=== PATIENT | female | born 1955 | race Caucasian/White ===

== ENCOUNTER → 2020-05-19 | Outpatient (CLI) | payer BC ==
--- NOTE | 2020-05-20 16:17 | RAD ---
DEXA scan 05/19/2020 Clinical History: Postmenopausal female. Risk factors for osteoporosis. Technique: DEXA of the lumbar spine and right hip was performed. FINDINGS: No previous studies are available for comparison. The bone mineral density of the lumbar spine is 1.033 g/cm2 which corresponds with a T-score of -1.2 . This is consistent with mild osteopenia. The mean bone mineral density of the right hip is g/sq cm. This corresponds to a T score of -3.3. This is consistent with mild to moderate osteoporosis. By [employer] on Osteoporosis criteria, a T score of 0 to-1 SD is considered to be within normal limits. A T score of -1 to -2.5 SD is considered osteopenia. A T score less than -2.5 SD is considered osteoporosis Impression: 1. Mild osteopenia of the lumbar spine. 2. Mild to moderate osteoporosis of the right hip. Electronically signed by: Brain Nguyen MD (05/20/2020 4:15 PM) [id number]
== END ==
LOC: DXRAD 15:17
PROVIDERS: ATTEND Family Medicine
DX: M81.8 Other osteoporosis without current pathological fracture (principal); M85.88 Other specified disorders of bone density and structure, other site; M25.551 Pain in right hip; M54.5 Low back pain; M54.16 Radiculopathy, lumbar region
CPT/HCPCS: 77080

== ENCOUNTER → 2021-09-14 | Outpatient (CLI) | payer MEDICARE ==
[~2021-09-14] MED LIST: IOHEXOL 240 MG/ML 50ML VIAL. ONE; IOHEXOL 300 MG/ML 75 ML VIAL. IV ONE
--- NOTE | 2021-09-14 11:33 | RAD ---
EXAM: Abdomen and pelvis CT with intravenous contrast. HISTORY: IVC obstruction. TECHNIQUE: Computed tomographic images of the abdomen and pelvis were obtained following the administ ration of intravenous contrast. Multiplanar reformatting was performed. *One or more of the following individualized dose reduction techniques were utilized for this examina tion: 1. Automated exposure control. 2. Adjustment of the mA and/or kV according to patient size. 3. Use of iterative reconstruction technique. COMPARISON: None. FINDINGS: Evaluation of the lower thorax demonstrates posterior dependent atelectasis. There is no in filtrate or pleural effusion. There is biliary ductal dilatation likely due to reservoir effect statu s post cholecystectomy. The pancreas, spleen and adrenal glands are unremarkable. There is a small hi atal hernia. There is renal cortical lobulation, developmental or due to scarring. There is a tiny crane perior right renal cortical cyst. There is no hydronephrosis. There is no appendicitis. There is no bowel obstruction. There is colonic diverticulosis. There is no diverticulitis. The bladder is unremarkable. The uterus is absent. The adnexal regions are unremarka ble. The aorta is atherosclerotic. There are prominent retroperitoneal and iliac chain lymph nodes. F or reference purposes, there is a left retroperitoneal lymph node slightly proximal to the iliac bifu rcation measuring 1.9 cm in long axis. The IVC is patent. There is severe right hip osteoarthritis. There is lumbar scoliosis. The mid is gr hugo 1 anterolisthesis of L4 on L5. There is degenerative change contributing to severe foraminal sten osis at L4-L5 and L5-S1. There is linear scarring with associated dystrophic calcification along the inferior ventral abdominal wall, possibly due to prior section. IMPRESSION: 1. No evidence of IVC obstruction. There are prominent nonspecific retroperitoneal and iliac chain ly mph nodes which may be physiologic or reactive. In the absence of prior studies to confirm stability, follow-up in approximately 6 months can be performed to confirm benignity. 2. Colonic diverticulosis. 3. Small hiatal hernia. 4. Biliary ductal dilatation due to reservoir effect status post cholecystectomy. 5. Tiny right renal cortical cyst. Follow-up is not routinely performed for simple cysts. 6. Severe right hip osteoarthritis and advanced degenerative change involving the lower lumbar spine. Electronically signed by: Estela Vail MD (09/14/2021 11:30 AM) [id number]
--- NOTE | 2021-09-15 07:58 | RAD ---
MR#: [id number] Date of Study: 09/14/2021 Ordering Physician: ZAY BRAUN, Referring Physician: ZAY BRAUN, Tech: Rhoda Lai, [place], [facility] APPROVED REPORT Bilateral Lower Extremity Venous Study for DVT Patient Location: OUT-PATIENT Indications Lower Extremity Edema: Medications Plavix Vein Imaging (Right) CFV (R): Compressible SFJ (R): Compressible FEM (R): Compressible POP (R): Compressible DFV (R): Compressible PTV (R): Compressible Vein Imaging (Left) CFV (L): Compressible SFJ (L): Compressible FEM (L): Compressible POP (L): Compressible DFV (L): Compressible PTV (L): Compressible Critical Notification Critical Value: No <Conclusion> FINDINGS Grayscale images of deep veins bilateral lower extremities were grossly unremarkable with fully compr essible common femoral, femoral and popliteal veins. Spectral waveform and color duplex analysis was within normal limits. The calf veins were poorly visualized secondary to soft tissue edema. No obv ious deep venous thrombosis was noted. CONCLUSIONS Bilateral lower extremity venous duplex scan did not show any obvious deep venous thrombosis. Signed by : Theodore Hammond, Electronically Approved : 09/15/2021 07:58:01
--- NOTE | 2021-09-15 08:01 | RAD ---
MR#: [id number] Date of Study: 09/14/2021 Ordering Physician: ZAY BRAUN, Referring Physician: ZAY BRAUN, Tech: Rhoda Lai RVT, [facility] APPROVED REPORT Patient Location : OUT-PATIENT Indications Lower Extremity Edema : Acute Bilateral Venous Stasis Dermatitis Medications Plavix Greater Saphenous Veins (GSV) Significant venous relux noted in the RIGHT GSV at the following levels : Proximal Thigh, Mid Thigh, Proximal Calf, Mid Calf Significant venous relux noted in the LEFT GSV at the following levels : Superficial Femoral Junction , Mid Thigh, Distal Thigh, Mid Calf, Distal Calf Lesser Saphenous Veins (LSV) Leftt Thigh extension noted : Yes Critical Notification Critical Value: No <Conclusion> FINDINGS Grayscale images of superficial veins and saphenofemoral junctions bilateral lower extremities were g rossly unremarkable without any evidence of thrombus. Spectral waveform and color duplex analysis sh owed significant venous reflux involving bilateral greater saphenous veins. The lesser saphenous vei ns bilaterally did not show any significant venous insufficiency. The right greater saphenous vein measured 6 mm at the saphenofemoral junction and showed significant reflux of 1.5 seconds. This vein showed significant reflux all the way from the groin to the ankle. The left greater saphenous vein measured 8 mm at the saphenofemoral junction and showed significant reflux of 1 second. This vein showed significant reflux all the way from the groin to the ankle. CONCLUSIONS Bilateral lower extremity venous reflux study showed significant insufficiency involving bilateral gr eater saphenous veins. Signed by : Theodore Hammond, Electronically Approved : 09/15/2021 08:01:12
== END ==
LOC: US 08:12
PROVIDERS: ATTEND Internal Medicine Cardiovascular Disease
DX: I87.2 Venous insufficiency (chronic) (peripheral) (principal); M79.89 Other specified soft tissue disorders; K57.30 Diverticulosis of large intestine without perforation or abscess without bleeding; K44.9 Diaphragmatic hernia without obstruction or gangrene; I89.8 Other specified noninfective disorders of lymphatic vessels and lymph nodes; N28.1 Cyst of kidney, acquired; J98.11 Atelectasis; K83.8 Other specified diseases of biliary tract; M47.816 Spondylosis without myelopathy or radiculopathy, lumbar region; M16.11 Unilateral primary osteoarthritis, right hip; M41.86 Other forms of scoliosis, lumbar region; M43.16 Spondylolisthesis, lumbar region; M48.07 Spinal stenosis, lumbosacral region; I70.0 Atherosclerosis of aorta; Z90.49 Acquired absence of other specified parts of digestive tract
CPT/HCPCS: 74177; 93970; Q9967